=== PATIENT | male | born 1980 | race Caucasian/White ===

== ENCOUNTER 2018-12-17 03:14 | Emergency (ER) | payer OTHER ==
[~2018-12-17] VITALS: Ht 185.4 cm; Wt 81.8 kg
[2018-12-17 03:15] VITALS: BP 138/93
== END 2018-12-17 03:32 ==
LOC: ER 03:14
DX: F10.129 Alcohol abuse with intoxication, unspecified (principal); Z72.89 Other problems related to lifestyle; Z04.1 Encounter for examination and observation following transport accident
CPT/HCPCS: 99283